=== PATIENT | female | born 1980 | race Two or more races ===

== ENCOUNTER 2016-12-01 09:55 | Emergency (ER) | payer OTHER ==
[~2016-12-01] VITALS: Ht 152.4 cm; Wt 90.7 kg
[2016-12-01 10:08] VITALS: BP 137/67
[2016-12-01] MEDS ORDERED: ALBUTEROL SULF 2.5 MG/0.5ML(0.5%) NEB SOLN NEB ONE (11:00)
[2016-12-01] MEDS ORDERED: IPRATROPIUM BROM 0.5 MG/2.5ML INH SOL NEB ONE (11:00)
[2016-12-01] MEDS ORDERED: cefTRIAXone SOD 1,000 MG VL IM ONE (11:00)
[2016-12-01] MEDS ORDERED: methylPREDNISolone SOD SUCC 125 MG/2 ML VL IM ONE (11:00)
== END 2016-12-01 11:22 | disposition home or self-care (01) ==
LOC: ER 09:55
DX: J20.9 Acute bronchitis, unspecified (principal); J45.901 Unspecified asthma with (acute) exacerbation
CPT/HCPCS: 71020; 94640; 96372; 99284; J0696; J2930

== ENCOUNTER 2016-12-11 08:05 | Emergency (ER) | payer OTHER ==
[~2016-12-11] VITALS: Ht 157.5 cm; Wt 89.8 kg
[2016-12-11 09:35] VITALS: BP 110/72
[2016-12-11] MEDS ORDERED: IPRATROPIUM BROM 0.5 MG/2.5ML INH SOL NEB ONE (10:15)
[2016-12-11] MEDS ORDERED: ALBUTEROL SULF 2.5 MG/0.5ML(0.5%) NEB SOLN NEB ONE (10:15)
[2016-12-11] MEDS ORDERED: methylPREDNISolone SOD SUCC 125 MG/2 ML VL IM ONE (10:15)
[2016-12-11] MEDS ORDERED: cefTRIAXone SOD 1,000 MG VL IM ONE (10:15)
== END 2016-12-11 11:09 | disposition home or self-care (01) ==
LOC: ER 08:10
DX: J20.9 Acute bronchitis, unspecified (principal); J45.901 Unspecified asthma with (acute) exacerbation
CPT/HCPCS: 93005; 94640; 96372; 99284; J0696; J2930

== ENCOUNTER 2016-12-20 11:47 | Emergency (ER) | payer OTHER ==
[~2016-12-20] VITALS: Ht 157.5 cm; Wt 90.7 kg
[2016-12-20 11:58] VITALS: BP 132/86
[2016-12-20] MEDS ORDERED: methylPREDNISolone SOD SUCC 125 MG/2 ML VL IM ONE (13:30)
[2016-12-20] MEDS ORDERED: IPRATROPIUM BROM 0.5 MG/2.5ML INH SOL NEB ONE (13:30)
[2016-12-20] MEDS ORDERED: ALBUTEROL SULF 2.5 MG/0.5ML(0.5%) NEB SOLN NEB ONE (13:30)
== END 2016-12-20 14:44 | disposition home or self-care (01) ==
LOC: ER 11:53
DX: J45.901 Unspecified asthma with (acute) exacerbation (principal)
CPT/HCPCS: 71020; 94640; 96372; 99284; J2930

== ENCOUNTER 2017-01-03 08:07 | Emergency (ER) | payer OTHER ==
[~2017-01-03] VITALS: Ht 157.5 cm; Wt 90.3 kg
[2017-01-03 09:27] VITALS: BP 129/74
[2017-01-03] MEDS ORDERED: ALBUTEROL SULF 2.5 MG/0.5ML(0.5%) NEB SOLN NEB ONE (09:45)
[2017-01-03] MEDS ORDERED: methylPREDNISolone SOD SUCC 125 MG/2 ML VL IM ONE (09:45)
[2017-01-03] MEDS ORDERED: IPRATROPIUM BROM 0.5 MG/2.5ML INH SOL NEB ONE (09:45)
== END 2017-01-03 10:26 | disposition home or self-care (01) ==
LOC: ER 08:08
DX: J45.901 Unspecified asthma with (acute) exacerbation (principal)
CPT/HCPCS: 81025; 93005; 94640; 96372; 99283; J2930

== ENCOUNTER 2017-01-08 08:11 | Emergency (ER) | payer OTHER ==
[~2017-01-08] VITALS: Ht 157.5 cm; Wt 79.4 kg
[2017-01-08 08:26] VITALS: BP 132/80
== END 2017-01-08 08:47 | disposition home or self-care (01) ==
LOC: ER 08:11
DX: B37.9 Candidiasis, unspecified (principal); N39.0 Urinary tract infection, site not specified; J45.909 Unspecified asthma, uncomplicated; E11.9 Type 2 diabetes mellitus without complications; Z98.890 Other specified postprocedural states
CPT/HCPCS: 81002

== ENCOUNTER 2017-01-23 08:22 | Emergency (ER) | payer OTHER ==
[~2017-01-23] VITALS: Ht 157.5 cm; Wt 90.7 kg
[2017-01-23] MEDS ORDERED: ALBUTEROL SULF 2.5 MG/0.5ML(0.5%) NEB SOLN HHN STA (08:34)
[2017-01-23 08:40] VITALS: BP 135/77
[2017-01-23] MEDS ORDERED: methylPREDNISolone SOD SUCC 125 MG/2 ML VL IV ONE (08:45)
[2017-01-23] MEDS ORDERED: IPRATROPIUM BROM 0.5 MG/2.5ML INH SOL NEB ONE (08:45)
[2017-01-23] MEDS ORDERED: SODIUM CHLORIDE 0.9% 1,000 ML IV ONE (08:45)
[2017-01-23 08:57] LABS: Basophils # (auto) 0 uL; Basophils % (auto) 0.5 % (0.0-2.0); DEFINITIVE VIEW TRANSMISSION; Eosinophils # (auto) 0.3 uL; Eosinophils % (auto) 4.7 % (0.0-7.0); Hematocrit 36.7 % (36.0-46.0); Hemoglobin 12.1 g/dL (12.2-16.2); Lymphocytes # (auto) 1.8 uL; Lymphocytes % (auto) 27.1 % (10.0-50.0); Mean Corpuscular Hemoglobin 26.6 pg (28.0-32.0); Mean Corpuscular Hgb Conc. 32.9 g/dL (32.0-36.0); Mean Corpuscular Volume 81.1 fL (80.0-100.0); Mean Platelet Volume 8.6 fL (7.4-10.4); Monocytes # (auto) 0.4 uL; Monocytes % (auto) 5.5 % (0.0-12.0); Neutrophils % (auto) 62.2 % (37.0-80.0); Platelet Count (auto) 313 10^3/uL (140-450); Red Cell Distribution Width 16.4 % (11.6-16.0); White Blood Cell 6.5 10^3/uL (4.4-10.8)
[2017-01-23 09:13] LABS: Albumin 3.3 g/dL (3.4-5.0); BUN/Creatinine Ratio 5.4; Calcium 8.1 mg/dL (8.5-10.1); Potassium 3.7 mmol/L (3.5-5.1)
[2017-01-23] MEDS ORDERED: MORPHINE SULFATE 4 MG/ML SYRG IV ONE (09:30)
[2017-01-23 10:13] LABS: B-Type Natriuretic Peptide 58.7 pg/mL (0-100); Temperature: 22.4 C (20.0-25.0)
== END 2017-01-23 11:12 | disposition home or self-care (01) ==
LOC: ER 08:22
DX: J45.909 Unspecified asthma, uncomplicated (principal); E11.9 Type 2 diabetes mellitus without complications; Z98.51 Tubal ligation status; R07.9 Chest pain, unspecified
CPT/HCPCS: 36415; 71010; 80053; 83880; 85025; 94644; 94761; 96361; 96374; 96375; 99285; J2270; J2930; J7030

== ENCOUNTER 2021-07-19 09:51 | Emergency (ER) | payer MEDICAID, OTHER ==
[~2021-07-19] VITALS: Ht 157.5 cm; Wt 90.7 kg
[2021-07-19 10:51] VITALS: BP 146/85
[2021-07-19] MEDS ORDERED: ALBUTEROL SULF 2.5 MG/0.5ML(0.5%) NEB SOLN NEB ONE (12:00)
[2021-07-19] MEDS ORDERED: IPRATROPIUM BROM 0.5 MG/2.5ML INH SOL NEB ONE (12:00)
[2021-07-19] MEDS ORDERED: methylPREDNISolone SOD SUCC 125 MG/2 ML VL IM ONE (12:00)
== END 2021-07-19 12:33 | disposition home or self-care (01) ==
LOC: ER 09:51
DX: J45.901 Unspecified asthma with (acute) exacerbation (principal); Z98.51 Tubal ligation status
CPT/HCPCS: 94640; 96372; 99283; J2930; J7644

== ENCOUNTER 2021-09-13 09:44 | Emergency (ER) | payer MEDICAID ==
[~2021-09-13] VITALS: Ht 157.5 cm; Wt 88.9 kg
[2021-09-13 10:42] LABS: Urine WBC None Seen /hpf (0 - 5)
[2021-09-13 11:06] LABS: Urine Bacteria NONE SEEN /hpf (None Seen); Urine Blood 1+ /uL (Negative); Urine Specific Gravity 1.013 (1.001-1.035)
[2021-09-13 11:13] VITALS: BP 128/72
== END 2021-09-13 12:01 | disposition home or self-care (01) ==
LOC: ER 09:44
DX: J20.9 Acute bronchitis, unspecified (principal); J45.909 Unspecified asthma, uncomplicated; E11.9 Type 2 diabetes mellitus without complications; Z20.822 Contact with and (suspected) exposure to COVID-19; Z32.02 Encounter for pregnancy test, result negative; Z98.51 Tubal ligation status
CPT/HCPCS: 36415; 71045; 81001; 81025; 82962; 87426

== ENCOUNTER 2022-08-02 09:00 | Emergency (ER) | payer MEDICAID ==
[~2022-08-02] VITALS: Ht 160 cm; Wt 84.5 kg
[2022-08-02 10:13] VITALS: BP 143/83
[2022-08-02] MEDS ORDERED: IPRATROPIUM BROM 0.5 MG/2.5ML INH SOL NEB ONE (10:15)
[2022-08-02] MEDS ORDERED: methylPREDNISolone SOD SUCC 125 MG/2 ML VL IM ONE (10:15)
[2022-08-02] MEDS ORDERED: ALBUTEROL SULF 2.5 MG/0.5ML(0.5%) NEB SOLN NEB ONE (10:15)
[2022-08-02 10:20] LABS: Basophils # (auto) 0.1 10 ^3/uL (0-0.2); Eosinophils # (auto) 0.1 10 ^3/uL (0-0.8); Monocytes # (auto) 0.4 10 ^3/uL (0-1.3); Neutrophils # (auto) 4.2 10 ^3/uL (1.6-8.6)
[2022-08-02 10:22] LABS: Eosinophils % (auto) 1.2 % (0.0-7.0); Hematocrit 33.2 % (36.0-46.0); Hemoglobin 10.5 g/dL (12.2-16.2); Lymphocytes # (auto) 1.6 10 ^3/uL (0.4-5.4); Lymphocytes % (auto) 25.5 % (10.0-50.0); Mean Corpuscular Hemoglobin 22.8 pg (28.0-32.0); Mean Corpuscular Hgb Conc. 31.5 g/dL (32.0-36.0); Mean Corpuscular Volume 72.2 fL (80.0-100.0); Monocytes % (auto) 6.1 % (0.0-12.0); Neutrophils % (auto) 66.2 % (37.0-80.0); Nucleated Red Blood Cells % 0.2 %; Red Cell Distribution Width 15.9 % (11.8-14.3); White Blood Cell 6.3 10^3/uL (4.4-10.8)
[2022-08-02] MEDS ORDERED: ALB5IS NEB (10:56)
[2022-08-02] MEDS ORDERED: METH4PAK PO (10:56)
[2022-08-02] MEDS ORDERED: AZIT500T66 PO (10:56)
== END 2022-08-02 11:11 | disposition home or self-care (01) ==
LOC: ER 09:00
DX: J45.901 Unspecified asthma with (acute) exacerbation (principal); J03.90 Acute tonsillitis, unspecified; R94.31 Abnormal electrocardiogram [ECG] [EKG]; E11.9 Type 2 diabetes mellitus without complications
CPT/HCPCS: 36415; 71045; 84484; 85025; 93005; 94640; 96372; 99285; J2930; J7644